=== PATIENT | female | born 1995 | race Caucasian/White ===

== ENCOUNTER 2016-11-29 13:48 | Emergency (ER) | payer OTHER, MEDICAID ==
[~2016-11-29 13:48] MED LIST: AMPICILLIN TRI500 M1 PO; ANAPROX DS550 M1 PO; ATIVAN0.5 M1 PO; ATROVENT30 ML; DICLEGIS DR 101 EACH PO; IBUPROFEN800 M1 PO; INDOMETHACIN50 M1 PO; IRON325 M3 PO; KEPPRA500 M3 PO; NO HOME MEDICATION XX; OXYCODONE HCL5 M1 PO; PERCOCET 5-3251 EACH PO; PREDNISONE10 M1 PO; PRENATAL VITAM1 EAC5 PO; ROXICODONE5 M2 PO; VISTARIL25 M1 PO; VITAMIN D50000 UNI2 PO; XANAX0.5 M1 PO; XANAX1 M1 PO; ZITHROMAX250 M1 PO; ZOFRAN4 M2 PO; ZOLOFT50 M1 PO
[2016-11-29] MEDS ORDERED: NO HOME MEDICATION XX (15:09)
== END 2016-11-29 15:30 ==
LOC: EDMED 13:48
PROC: 2W3CX1Z Immobilization of Right Lower Arm using Splint (ICD-10-PCS; principal; 2016-11-29)
DX: S62.356A Nondisplaced fracture of shaft of fifth metacarpal bone, right hand, initial encounter for closed fracture (principal); W10.9XXA Fall (on) (from) unspecified stairs and steps, initial encounter; Y92.019 Unspecified place in single-family (private) house as the place of occurrence of the external cause